=== PATIENT | female | born 1985 | race Caucasian/White ===

== ENCOUNTER 2017-03-02 17:10 | Emergency (ER) | payer OTHER | END 2017-03-02 20:03 | disposition home or self-care (01) | LOC: ER 17:10 | DX: M79.1 Myalgia (principal); V43.52XD Car driver injured in collision with other type car in traffic accident, subsequent encounter; Z88.8 Allergy status to other drugs, medicaments and biological substances | CPT/HCPCS: 71020; 99283 ==